=== PATIENT | male | born 1975 | race Caucasian/White ===

== ENCOUNTER 2019-09-17 20:39 | Inpatient (IN) | payer MEDICAID, OTHER ==
[~2019-09-17] VITALS: Ht 172.7 cm; Wt 63.5 kg
[2019-09-17 20:49] VITALS: BP 107/69
[2019-09-17 21:32] LABS: BASOPHILS # (AUTO) 0.1 K/uL (0.00-0.22); EOSINOPHILS # (AUTO) 0.1 K/uL (0-0.4); EOSINOPHILS % (AUTO) 0.7 % (0.0-4.0); HEMATOCRIT 37.2 % (36-52); HEMOGLOBIN 12.1 g/dL (12.0-18.0); LYMPHOCYTES # (AUTO) 1.3 K/uL (2.0-11.5); LYMPHOCYTES % (AUTO) 14.8 % (20.5-51.1); MEAN CORPUSCULAR HEMOGLOBIN 30 pg (27-31); MEAN CORPUSCULAR HGB CONC 33 g/dL (33-37); MEAN CORPUSCULAR VOLUME 90.7 fL (80-94); MONOCYTES # (AUTO) 0.6 K/uL (0.8-1.0); NEUTROPHILS # (AUTO) 6.6 K/uL (1.8-7.7); NEUTROPHILS % (AUTO) 76.5 % (42.2-75.2); PLATELET COUNT (AUTO) 211 K/uL (140-450); RED CELL DISTRIBUTION WIDTH 14.5 % (11.6-13.7); WHITE BLOOD COUNT (AUTO) 8.6 K/uL (4.8-10.8)
[2019-09-17 21:41] LABS: BARBITURATE, URINE NEGATIVE ng/ml (NEG <=200); BENZODIAZEPINE, URINE NEGATIVE ng/mL (NEG <=200); CANNABINOID, URINE POSITIVE ng/mL (NEG <=50); COCAINE, URINE NEGATIVE ng/mL (NEG <=300); OPIATE, URINE NEGATIVE ng/mL (NEG <=2000); PHENCYCLIDINE SCREEN,URINE NEGATIVE ng/mL (NEG <=25)
[2019-09-17 23:06] LABS: ALBUMIN 3.2 g/dL (3.4-5.0); ANION GAP 8.3 (8-16); ASPARTATE AMINOTRANSFERASE 119 U/L (15-37); CARBON DIOXIDE 30.5 mmol/L (21-32); CHLORIDE 103 mmol/L (98-107); CREATININE 0.8 mg/dL (0.6-1.3); GFR ARICAN-AMERICAN 136 mL/min (>90); GLUCOSE 100 mg/dL (74-106); POTASSIUM 3.8 mmol/L (3.5-5.1); SODIUM SERUM 138 mmol/L (136-145); TOTAL BILIRUBIN 0.3 mg/dL (0.0-1.0); UREA NITROGEN, BLOOD 21 mg/dL (7-18)
[2019-09-17 23:07] LABS: ACETAMINOPHEN < 0.5 ug/ml (10-30); SALICYLATE < 2.8 mg/dL (2.8-20.0)
[2019-09-18] MEDS ORDERED: diphenhydrAMINE 50 MG/ML VIAL IM ONE (03:35)
[2019-09-18] MEDS ORDERED: LORazepam 2 MG/ML VIAL IM ONE (03:35)
[2019-09-18] MEDS ORDERED: HALOPERIDOL IM 5 MG/ML VIAL IM ONE (04:15)
[2019-09-18] MEDS ORDERED: LORazepam 2 MG/ML VIAL IM/IVP PRN (06:20)
[2019-09-18] MEDS ORDERED: HYDROcodone/APAP 5/325 MG 1 TAB TAB PO PRN (06:20)
[2019-09-18] MEDS ORDERED: ONDANSETRON 4 MG/2 ML VIAL IM/IVP PRN (06:20)
[2019-09-18] MEDS ORDERED: DOCUSATE SODIUM 100 MG GELCAP PO PRN (06:20)
[2019-09-18] MEDS ORDERED: ACETAMINOPHEN 325 MG TAB PO PRN (06:20)
[2019-09-18] MEDS ORDERED: ZOLPIDEM 5 MG TAB PO PRN (06:20)
[2019-09-18] MEDS ORDERED: MORPHINE SULFATE 2 MG/ML SYR IVP PRN (06:20)
[2019-09-18] MEDS ORDERED: LORazepam 2 MG/ML VIAL IVP PRN (06:25)
[2019-09-18] MEDS: NACL 0.9% 1,000 ML IV SCH (08:30)
[2019-09-18] MEDS ORDERED: MULTIVITAMIN-12 10 ML, THIAMINE 100 MG, FOLIC ACID 1 MG, MAGNESIUM SULFATE 50% 2,000 MG... IV SCH ×5 (09:00)
[2019-09-18] MEDS: THIAMINE 100 MG TAB PO SCH (09:57)
[2019-09-18] MEDS: chlordiazePOXIDE 25 MG CAP PO SCH ×3 (09:57→17:32)
[2019-09-18] MEDS: OLANZapine 5 MG TAB PO SCH (09:57)
[2019-09-18] MEDS: MULTIVITAMIN 1 TAB PO SCH (09:57)
[2019-09-18] MEDS: FOLIC ACID 1 MG TAB PO SCH (09:58)
[2019-09-18 12:39] LABS: CHOL/HDL RATIO 1.8 (1-4.5); MAGNESIUM 1.8 mg/dL (1.8-2.4); PHOSPHORUS 1.6 mg/dL (2.5-4.9); THYROID STIMULATING HORMONE 1.38 uIU/mL (0.34-3.74)
[2019-09-18 13:19] LABS: APPEARANCE,URINE CLEAR (CLEAR); BILIRUBIN,URINE NEGATIVE (NEGATIVE); BLOOD, URINE NEGATIVE (NEGATIVE); COLOR,URINE YELLOW (YELLOW); LEUKOCYTE ESTERASE ,URINE NEGATIVE (NEGATIVE); NITRITE, URINE NEGATIVE (NEGATIVE); PH,URINE 6.5 (5.0-9.0); UGLUCOSE NEGATIVE (NEGATIVE)
[2019-09-18 16:00] VITALS: BP 108/56
[2019-09-19] VITALS: BP 94/46
[2019-09-19] MEDS: NACL 0.9% 1,000 ML IV SCH ×2 (01:54→15:39)
[2019-09-19 07:16] LABS: BASOPHILS % (AUTO) 0.7 % (0.0-2.0); EOSINOPHILS # (AUTO) 0.2 K/uL (0-0.4); EOSINOPHILS % (AUTO) 4.2 % (0.0-4.0); HEMATOCRIT 38.7 % (36-52); HEMOGLOBIN 12.5 g/dL (12.0-18.0); LYMPHOCYTES # (AUTO) 1.3 K/uL (2.0-11.5); LYMPHOCYTES % (AUTO) 28.6 % (20.5-51.1); MEAN CORPUSCULAR HEMOGLOBIN 29 pg (27-31); MEAN CORPUSCULAR HGB CONC 32 g/dL (33-37); MEAN CORPUSCULAR VOLUME 91.1 fL (80-94); MONOCYTES # (AUTO) 0.5 K/uL (0.8-1.0); MONOCYTES % (AUTO) 11.2 % (1.7-9.3); NEUTROPHILS # (AUTO) 2.5 K/uL (1.8-7.7); NEUTROPHILS % (AUTO) 55.3 % (42.2-75.2); PLATELET COUNT (AUTO) 215 K/uL (140-450); RED BLOOD CELL COUNT(AUTO) 4.24 MIL/uL (4.20-6.10); RED CELL DISTRIBUTION WIDTH 14.5 % (11.6-13.7); WHITE BLOOD COUNT (AUTO) 4.5 K/uL (4.8-10.8)
[2019-09-19 07:26] LABS: ANION GAP 7.5 (8-16); CARBON DIOXIDE 30.2 mmol/L (21-32); CREATININE 0.7 mg/dL (0.6-1.3); POTASSIUM 3.7 mmol/L (3.5-5.1)
[2019-09-19 07:41] LABS: ALBUMIN 2.7 g/dL (3.4-5.0); MAGNESIUM 1.9 mg/dL (1.8-2.4); TOTAL BILIRUBIN 0.3 mg/dL (0.0-1.0)
[2019-09-19 08:00] VITALS: BP 109/60
[2019-09-19] MEDS: MULTIVITAMIN 1 TAB PO SCH (09:56)
[2019-09-19] MEDS: OLANZapine 5 MG TAB PO SCH (09:56)
[2019-09-19] MEDS: THIAMINE 100 MG TAB PO SCH (09:56)
[2019-09-19] MEDS: FOLIC ACID 1 MG TAB PO SCH (09:56)
[2019-09-19] MEDS: chlordiazePOXIDE 25 MG CAP PO SCH ×2 (09:56→13:26)
[2019-09-19] MEDS ORDERED: OLAN5TAB30 PO (15:49)
== END 2019-09-19 17:20 | DRG 812 ==
LOC: MED 20:39 → MTU 09-18 06:22
PROVIDERS: ADMIT General Practice; ATTEND General Practice
DX: T40.7X1A Poisoning by cannabis (derivatives), accidental (unintentional), initial encounter (principal); G92 Toxic encephalopathy; E44.0 Moderate protein-calorie malnutrition; R45.851 Suicidal ideations; F10.239 Alcohol dependence with withdrawal, unspecified; Y90.0 Blood alcohol level of less than 20 mg/100 ml; F31.9 Bipolar disorder, unspecified; F20.9 Schizophrenia, unspecified; F17.210 Nicotine dependence, cigarettes, uncomplicated; D17.39 Benign lipomatous neoplasm of skin and subcutaneous tissue of other sites; E83.39 Other disorders of phosphorus metabolism; Y92.89 Other specified places as the place of occurrence of the external cause; Z68.21 Body mass index [BMI] 21.0-21.9, adult
CPT/HCPCS: 36415; 71045; 80048; 80053; 80076; 80305; 81003; 83036; 83690; 83735; 84100; 84134; 84443; 85025; 85610; 85730; 93005; 96372; 99285; A9153; G0480; G0482; J1200; J1630; J2060; J3411; J3475; J3490; J7030; Q0092